=== PATIENT | male | born 1965 | race Caucasian/White ===

== ENCOUNTER 2023-09-30 09:01 | Emergency (ER) | payer BC ==
[~2023-09-30] VITALS: Ht 152.4 cm; Wt 59.0 kg
[2023-09-30 10:30] VITALS: BP 129/113; PULSE 82; RESP 20; TEMP 98; O2SAT 98
[2023-09-30] MEDS ORDERED: PRED20TA5 PO (11:46)
[2023-09-30] MEDS ORDERED: AZIT250T4 PO (11:46)
[2023-09-30] MEDS ORDERED: IBUP-2213 PO (11:46)
[2023-09-30 12:02] VITALS: BP 129/113; PULSE 82; RESP 20; TEMP 98; O2SAT 98
== END 2023-09-30 12:04 | disposition home or self-care (01) ==
LOC: MED 09:01
DX: J06.9 Acute upper respiratory infection, unspecified (principal); Z79.899 Other long term (current) drug therapy
CPT/HCPCS: 93005; 99283